=== PATIENT | female | born 1985 | race African-American/Black ===

== ENCOUNTER 2022-05-15 01:38 | Emergency (ER) | payer MEDICAID ==
[~2022-05-15] VITALS: Ht 165.1 cm; Wt 64.5 kg
[2022-05-15 03:13] LABS: Urine Bacteria NONE SEEN /hpf (None Seen); Urine Blood Negative /uL (Negative); Urine Mucus FEW (None Seen); Urine WBC 3 /hpf (0 - 5)
[2022-05-15] MEDS ORDERED: cefTRIAXone SOD 500 MG VL IM ONE (04:00)
[2022-05-15] MEDS ORDERED: DOXY-338 PO (04:02)
[2022-05-15 05:44] VITALS: BP 131/92
== END 2022-05-15 05:48 | disposition home or self-care (01) ==
LOC: ER 01:38
DX: L29.8 Other pruritus (principal); Z88.1 Allergy status to other antibiotic agents
CPT/HCPCS: 81001; 96372; 99283; J0696

== ENCOUNTER 2022-09-30 13:26 | Emergency (ER) | payer MEDICAID ==
[~2022-09-30] VITALS: Ht 165.1 cm; Wt 60.0 kg
[~2022-09-30 13:26] MED LIST: DOXY-338 PO
[2022-09-30 14:10] VITALS: BP 135/88
[2022-09-30] MEDS ORDERED: VALA1TAB PO (15:38)
== END 2022-09-30 15:49 | disposition home or self-care (01) ==
LOC: ER 13:26
DX: B00.89 Other herpesviral infection (principal); Z88.1 Allergy status to other antibiotic agents